=== PATIENT | male | born 1955 | race Caucasian/White ===

== ENCOUNTER → 2019-08-15 | Outpatient (CLI) | payer MEDICARE, OTHER ==
[2017-10-15 12:56] VITALS: BP 118/75
[~2019-08-15] MED LIST: ASPI-612 PO; BUPR300T3 PO; EMPA10TA PO; EZET10TA20 PO; LISI2.5T PO; METF500T16 PO; METO-239 PO; NOVALOG INSULIN PUMP; OMEP40CA45 PO; SIMV40TA18 PO
--- NOTE | 2019-08-15 16:12 | RAD ---
LONA ART STUDY LOWER EXTREM NESHA, DUPLEX LOWER EXTREMITY BILAT Indication: Reason: DECREASED PULSES B/L FEET / Spl. Instructions: / History: Comparison: None. Procedure: Arterial pressures are measured in the arms and ankles. Real-time grayscale, color flow Doppler, and Doppler spectral waveform analysis of the arterial system of the lower extremity is performed. Findings: Right ankle: 143 mm Hg. Right arm: 123 mm Hg. Right leg LONA: 1.1. Left ankle: 152 mm Hg. Left arm: 120 mm Hg. Left leg LONA: 1.2. Findings: Right lower extremities: Moderate scattered atheromatous plaque. Triphasic or biphasic waveforms within the right common femoral, deep femoral, superficial femoral, popliteal and peroneal arteries. Occluded posterior tibial artery. Monophasic waveform within the dorsalis pedis artery. Left lower extremity: Moderate scattered atheromatous plaque. Biphasic waveform within the left common femoral, deep femoral, superficial femoral, popliteal, posterior tibial, peroneal and anterior tibial arteries. Monophasic waveform within the left dorsalis pedis artery. IMPRESSION: 1. Occluded right posterior tibial artery. CT angiogram can further assess if clinically indicated. 2. Moderate scattered atheromatous plaque. 3. Monophasic waveforms within the bilateral dorsalis pedis arteries, may indicate proximal stenosis. 4. Normal bilateral ankle brachial indices. Electronically signed by: Hank Berg DO (08/15/2019 4:09 PM) [id number]
== END | disposition home or self-care (01) ==
LOC: US 12:17
PROVIDERS: ATTEND Family Medicine
DX: I70.298 Other atherosclerosis of native arteries of extremities, other extremity (principal); I77.1 Stricture of artery; I70.0 Atherosclerosis of aorta
CPT/HCPCS: 93922; 93925

== ENCOUNTER 2019-10-16 17:17 | Emergency (ER) | payer MEDICARE ==
[~2019-10-16] VITALS: Ht 182.9 cm; Wt 95.9 kg
[~2019-10-16 17:17] MED LIST changes: -ASPI-612 PO; +ASPI-886 PO
[2019-10-16 17:40] VITALS: BP 145/71
--- NOTE | 2019-10-16 18:25 | RAD ---
3 views left hand AP lateral oblique views HISTORY: Status post fall with palmar laceration There are comminuted fractures of the base of the fourth and fifth fingers. The fractured base of the fifth finger has mild valgus angulation and anterior displacement and posterior angulation. A fracture the base of the fourth finger is nondisplaced. The remaining visualized osseous structures appear intact. IMPRESSION: Acute traumatic fractures the base of the fourth and fifth fingers. Electronically signed by: Marvin Michael III, MD (10/16/2019 6:22 PM) [facility]
[2019-10-16] MEDS ORDERED: fentaNYL PF VIAL 100 MCG/2 ML VIAL IVP ONE (18:45)
--- NOTE | 2019-10-16 19:13 | RAD ---
CT Head W/O Contrast: History: Reason: fall / Spl. Instructions: / History: Comparison: none Axial images were obtained without contrast. There is moderate diffuse atrophy. There is no mass effect, extraaxial fluid collections or hydrocephalus. There is no focal loss of galo-white matter distinction to suggest acute ischemia, i.e. stroke. Impression: Atrophy slightly advanced for the patient's age. No acute findings. End impression CT maxillofacial without contrast History: Pain status post fall Axial helical images of the face were obtained without contrast. Axial and coronal reconstruction was performed. The nasal septum is mild deviated to the right. The ostiomeatal complexes are narrow but patent. There is a small amount of blood posteriorly in the right maxillary sinus. The visualized osseous structures appear intact. The orbits appear normal. Impression: Tiny amount of blood in the right maxillary sinus. No fracture seen. End impression CT C-Spine without contrast: Clinical History: Reason: fall / Spl. Instructions: / History: Technique: Axial helical images of the cervical spine were obtained without contrast, axial coronal and sagittal reconstruction was performed. Findings: There is no loss of vertebral body stature. There is no prevertebral soft tissue swelling. The vertebral bodies are well aligned. The C1-C2 relationship is normal. The visualized osseous structures appear normal. Evaluation of the central canal is limited without contrast. There is multiple posterior disc bulges resulting in flattening of the thecal sac. There does not appear to be gross flattening of the cervical cord. There is moderate narrowing of multiple neuroforamen. Impression: No acute findings. Clinical correlation suggested. PQRS Compliance Statement: One or more of the following individualized dose reduction techniques were utilized for this examination: 1. Automated exposure control 2. Adjustment of the mA and/or kV according to patient size 3. Use of iterative reconstruction technique Electronically signed by: Marvin Michael III, MD (10/16/2019 7:11 PM) [facility]
[2019-10-16 19:14] LABS: BASO # 0.1 x10^3/uL (0.0-0.2); BASO % 1 % (0-3); EOS # 0.1 x10^3/uL (0.0-0.7); EOS % 0 % (0-3); HEMOGLOBIN 14.5 g/dL (13.0-17.5); LYMPH # 1.4 x10^3/uL (1.0-4.8); LYMPH % 11 % (24-48); MEAN CORPUSCULAR HEMOGLOBIN 29 pg (25-35); MEAN CORPUSCULAR HGB CONC 35 g/dL (31-37); MEAN CORPUSCULAR VOLUME 85 fL (79-100); MONO # 0.7 x10^3/uL (0.0-1.1); MONO % 6 % (0-9); NEUT # 10.5 x10^3/uL (1.8-7.7); NEUT % 82 % (31-73); PLATELET COUNT 178 x10^3/uL (140-400); RED BLOOD COUNT 4.95 x10^6/uL (4.30-5.70); RED CELL DISTRIBUTION WIDTH 13.1 % (11.5-14.5); WHITE BLOOD COUNT 12.8 x10^3/uL (4.0-11.0)
[2019-10-16 19:23] LABS: PROTHROMBIN TIME PATIENT 13.1 SEC (11.7-14.0)
[2019-10-16 19:29] LABS: CALCIUM 9.2 mg/dL (8.5-10.1); CREATININE 1.3 mg/dL (0.7-1.3); GFR 55.9; POTASSIUM 5.1 mmol/L (3.5-5.1)
[2019-10-16 19:34] LABS: ALBUMIN 3.6 g/dL (3.4-5.0); ALBUMIN/GLOBULIN RATIO 1.1 (1.0-1.7); TOTAL BILIRUBIN 0.4 mg/dL (0.2-1.0); TOTAL PROTEIN 6.8 g/dL (6.4-8.2)
[2019-10-16] MEDS ORDERED: PIPERACILLIN/TAZOBACTAM 3.375 GM in IV NORMAL SALINE 50ML 50 ML IV ONE (20:30)
[2019-10-16] MEDS ORDERED: fentaNYL PF VIAL 100 MCG/2 ML VIAL IV PRN (20:45)
[2019-10-16] MEDS ORDERED: DIPH,PERTUSS(ACELL),TET VAC/PF 0.5 ML SYRINGE. VAX IM ONE (20:45)
[2019-10-16] MEDS ORDERED: LIDOCAINE WITH 8.4% SOD BICARB 3 ML DISP.SYRIN. INJ ONE (21:15)
--- NOTE | 2019-10-16 21:49 | PHYS DOC ---
Past Medical History Past Medical History: CAD, Diabetes-Type I, GERD, High Cholesterol, Stroke Past Surgical History: Coronary Bypass Surgery, Hip Replacement Additional Past Surgical Histo: CABG X5, SHOULDER, KNEE, PLANTAR FASCIITIS, LASER EYE Smoking Status: Never Smoker Alcohol Use: None Drug Use: None General Adult EDM: Chief Complaint: LACERATION/AVULSION HPI: HPI: Patient is a 64 year old female with history of diabetes type 1, hypertension, high cholesterol, CVA, who presents to the ED today to be evaluated after falling. Patient reports he was moving 70lbs Olympic weights which pulled him forward and he fell down. Patient has abrasions on his forehead, laceration to the left hand, laceration to the upper lip and nasal bridge. Patient denies any loss of consciousness. Denies any neck pain. Review of Systems: Review of Systems: Constitutional: Denies fever or chills. [] Eyes: Denies change in visual acuity. [] HENT: Denies nasal congestion or sore throat. [] Respiratory: Denies cough or shortness of breath. [] Cardiovascular: Denies chest pain or edema. [] GI: Denies abdominal pain, nausea, vomiting, bloody stools or diarrhea. [] : Denies dysuria. [] Musculoskeletal: Reports left hand laceration. Denies back pain or joint pain. [] Integument: Reports facial bruising Neurologic: Denies headache, focal weakness or sensory changes. [] Psychiatric: Denies depression or anxiety. [] Heart Score: Risk Factors: Risk Factors: DM, Current or recent (<one month) smoker, HTN, HLP, family history of CAD, obesity. Risk Scores: Score 0 - 3: 2.5% MACE over next 6 weeks - Discharge Home Score 4 - 6: 20.3% MACE over next 6 weeks - Admit for Clinical Observation Score 7 - 10: 72.7% MACE over next 6 weeks - Early Invasive Strategies Current Medications: Current Medications Medications (Trade) Dose Ordered Sig/Francisco Start Time Stop Time Status Last Admin Dose Admin Diphtheria/ Tetanus/Acell Pertussis (ADACEL TDap SYRINGE) 0.5 ml ONCE ONCE 10/16/19 20:45 10/16/19 20:46 DC Fentanyl Citrate (Fentanyl 2ml Vial) 50 mcg PRN Q15MIN PRN 10/16/19 20:45 10/17/19 20:44 9/7/20 20:50 50 MCG Lidocaine HCl (Buffered Lidocaine 1%) 9 ml 1X ONCE 10/16/19 21:15 10/16/19 21:16 DC Piperacillin Sod/ Tazobactam Sod 3.375 gm/Sodium Chloride 50 ml @ 100 mls/hr 1X ONCE 10/16/19 20:30 10/16/19 20:59 DC 10/16/19 20:30 100 MLS/HR Allergies: Allergies: Allergies Coded Allergies Type Severity Reaction Last Updated Verified codeine Allergy Mild nausea 10/14/17 Yes Physical Exam: PE: Constitutional: Well developed, well nourished, no acute distress, non-toxic appearance. [] HENT: Normocephalic,, bilateral external ears normal, oropharynx moist, no oral exudates, see skin, trace amount of blood noted in bilateral nasal cavities that appears to be nosebleed that has slowed down Eyes: PERRLA, EOMI, conjunctiva normal, no discharge. [] Neck: Normal range of motion, no tenderness, supple, no stridor. [] Cardiovascular:Heart rate regular rhythm, no murmur [] Lungs & Thorax: Bilateral breath sounds clear to auscultation [] Abdomen: Bowel sounds normal, soft, no tenderness, no masses, no pulsatile masses. [] Skin: Bruising noted to the right forehead, upper lip, nose with a laceration approximately 2 cm over the nasal bridge. Upper lip with a laceration approxi mately 0.5 cm not cutting through. Inner upper lip with bruising Back: No tenderness, no CVA tenderness. [] Extremities: Palmar aspect of the left hand distal end just below the MIP joints with a laceration approximately 8 cm long. Patient able to flex and extend the fingers though they appear deformed specifically fourth and fifth fingers. Tenderness on palpation of the left fourth and fifth fingers. There is no obvious tendon involvement in the laceration. Adequate radial, medial, ulnar sensation to the left hand. Cap refill less than 2 seconds in left fingers. Neurologic: Alert and oriented X 3, normal motor function, normal sensory function, no focal deficits noted. Cranial nerves II through XII intact Psychologic: Affect normal, judgement normal, mood normal. [] Current Patient Data: Labs: Laboratory Tests Test 10/16/19 18:50 White Blood Count 12.8 x10^3/uL (4.0-11.0) H Red Blood Count 4.95 x10^6/uL (4.30-5.70) Hemoglobin 14.5 g/dL (13.0-17.5) Hematocrit 42.0 % (39.0-53.0) Mean Corpuscular Volume 85 fL (79-100) Mean Corpuscular Hemoglobin 29 pg (25-35) Mean Corpuscular Hemoglobin Concent 35 g/dL (31-37) Red Cell Distribution Width 13.1 % (11.5-14.5) Platelet Count 178 x10^3/uL (140-400) Neutrophils (%) (Auto) 82 % (31-73) H Lymphocytes (%) (Auto) 11 % (24-48) L Monocytes (%) (Auto) 6 % (0-9) Eosinophils (%) (Auto) 0 % (0-3) Basophils (%) (Auto) 1 % (0-3) Neutrophils # (Auto) 10.5 x10^3/uL (1.8-7.7) H Lymphocytes # (Auto) 1.4 x10^3/uL (1.0-4.8) Monocytes # (Auto) 0.7 x10^3/uL (0.0-1.1) Eosinophils # (Auto) 0.1 x10^3/uL (0.0-0.7) Basophils # (Auto) 0.1 x10^3/uL (0.0-0.2) Prothrombin Time 13.1 SEC (11.7-14.0) Prothrombin Time INR 1.0 (0.8-1.1) Activated Partial Thromboplast Time 28 SEC (24-38) Sodium Level 142 mmol/L (136-145) Potassium Level 5.1 mmol/L (3.5-5.1) Chloride Level 105 mmol/L (98-107) Carbon Dioxide Level 30 mmol/L (21-32) Anion Gap 7 (6-14) Blood Urea Nitrogen 17 mg/dL (8-26) Creatinine 1.3 mg/dL (0.7-1.3) Estimated GFR (Cockcroft-Gault) 55.9 BUN/Creatinine Ratio 13 (6-20) Glucose Level 179 mg/dL (70-99) H Calcium Level 9.2 mg/dL (8.5-10.1) Total Bilirubin 0.4 mg/dL (0.2-1.0) Aspartate Amino Transferase (AST) 25 U/L (15-37) Alanine Aminotransferase (ALT) 31 U/L (16-63) Alkaline Phosphatase 82 U/L (46-116) Total Protein 6.8 g/dL (6.4-8.2) Albumin 3.6 g/dL (3.4-5.0) Albumin/Globulin Ratio 1.1 (1.0-1.7) Laboratory Tests 10/16/19 18:50 Laboratory Tests 10/16/19 18:50 Vital Signs: Vital Signs Date Time Temp Pulse Resp B/P (MAP) Pulse Ox O2 Delivery O2 Flow Rate FiO2 10/16/19 20:50 16 96 10/16/19 17:40 97.7 99 145/71 (95) Room Air 97.7 EKG: EKG: [] Radiology/Procedures: Radiology/Procedures: []PROCEDURE: HAND LEFT 3V 3 views left hand AP lateral oblique views HISTORY: Status post fall with palmar laceration There are comminuted fractures of the base of the fourth and fifth fingers. The fractured base of the fifth finger has mild valgus angulation and anterior displacement and posterior angulation. A fracture the base of the fourth finger is nondisplaced. The remaining visualized osseous structures appear intact. IMPRESSION: Acute traumatic fractures the base of the fourth and fifth fingers. Electronically signed by: Christy Bonilla III, MD (10/16/2019 6:22 PM) [facility] DICTATED and SIGNED BY: CHRISTY BONILLA III, MD DATE: 10/16/191821 PROCEDURE: CT HEAD AND CERVICAL SPINE WO CT Head W/O Contrast: History: Reason: fall / Spl. Instructions: / History: Comparison: none Axial images were obtained without contrast. There is moderate diffuse atrophy. There is no mass effect, extraaxial fluid collections or hydrocephalus. There is no focal loss of galo-white matter distinction to suggest acute ischemia, i.e. stroke. Impression: Atrophy slightly advanced for the patient's age. No acute findings. End impression CT maxillofacial without contrast History: Pain status post fall Axial helical images of the face were obtained without contrast. Axial and coronal reconstruction was performed. The nasal septum is mild deviated to the right. The ostiomeatal complexes are narrow but patent. There is a small amount of blood posteriorly in the right maxillary sinus. The visualized osseous structures appear intact. The orbits appear normal. Impression: Tiny amount of blood in the right maxillary sinus. No fracture seen. End impression CT C-Spine without contrast: Clinical History: Reason: fall / Spl. Instructions: / History: Technique: Axial helical images of the cervical spine were obtained without contrast, axial coronal and sagittal reconstruction was performed. Findings: There is no loss of vertebral body stature. There is no prevertebral soft tissue swelling. The vertebral bodies are well aligned. The C1-C2 relationship is normal. The visualized osseous structures appear normal. Evaluation of the central canal is limited without contrast. There is multiple posterior disc bulges resulting in flattening of the thecal sac. There does not appear to be gross flattening of the cervical cord. There is moderate narrowing of multiple neuroforamen. Impression: No acute findings. Clinical correlation suggested. PQRS Compliance Statement: One or more of the following individualized dose reduction techniques were utilized for this examination: 1. Automated exposure control 2. Adjustment of the mA and/or kV according to patient size 3. Use of iterative reconstruction technique Electronically signed by: Christy Bonilla III, MD (10/16/2019 7:11 PM) [facility] DICTATED and SIGNED BY: CHRISTY BONILLA III, MD DATE: 10/16/191910 PROCEDURE: CT MAXILLOFACIAL WO CONTRAST CT Head W/O Contrast: History: Reason: fall / Spl. Instructions: / History: Comparison: none Axial images were obtained without contrast. There is moderate diffuse atrophy. There is no mass effect, extraaxial fluid collections or hydrocephalus. There is no focal loss of galo-white matter distinction to suggest acute ischemia, i.e. stroke. Impression: Atrophy slightly advanced for the patient's age. No acute findings. End impression CT maxillofacial without contrast History: Pain status post fall Axial helical images of the face were obtained without contrast. Axial and coronal reconstruction was performed. The nasal septum is mild deviated to the right. The ostiomeatal complexes are narrow but patent. There is a small amount of blood posteriorly in the right maxillary sinus. The visualized osseous structures appear intact. The orbits appear normal. Impression: Tiny amount of blood in the right maxillary sinus. No fracture seen. End impression CT C-Spine without contrast: Clinical History: Reason: fall / Spl. Instructions: / History: Technique: Axial helical images of the cervical spine were obtained without contrast, axial coronal and sagittal reconstruction was performed. Findings: There is no loss of vertebral body stature. There is no prevertebral soft tissue swelling. The vertebral bodies are well aligned. The C1-C2 relationship is normal. The visualized osseous structures appear normal. Evaluation of the central canal is limited without contrast. There is multiple posterior disc bulges resulting in flattening of the thecal sac. There does not appear to be gross flattening of the cervical cord. There is moderate narrowing of multiple neuroforamen. Impression: No acute findings. Clinical correlation suggested. PQRS Compliance Statement: One or more of the following individualized dose reduction techniques were utilized for this examination: 1. Automated exposure control 2. Adjustment of the mA and/or kV according to patient size 3. Use of iterative reconstruction technique Electronically signed by: Christy Bonilla III, MD (10/16/2019 7:11 PM) [facility] DICTATED and SIGNED BY: CHRISTY BONILLA III, MD DATE: 10/16/191910 Laceration/Wound Repair Wound Location: Nasal bridge and upper lip Wound's Depth, Shape: Horizontal Wound Length (cm): See skin documentation Wound Explored: clean Irrigated w/ Saline (ccs): 20 Betadine Prep?: y Anesthesia: 1% of buffered lidocaine Volume Anesthetic (ccs): 3 cc total Wound Repaired With: Nasal laceration was repaired with dissolvable gut 5.0 4 interrupted sutures were done, upper lip laceration was repaired with Vicryl 4.0, 2 interrupted sutures were done. Course & Med Decision Making: Course & Med Decision Making Pertinent Labs and Imaging studies reviewed. (See chart for details) This is a 64-year-old male patient who presents to the ED today to be evaluated status post falling while moving weights. CT of the head, cervical spine and maxillofacial were negative for any acute findings. Left hand x-ray was noted for acute traumatic fractures the base of the fourth and fifth fingers, this is an open fracture. Consulted with Dr. Rock who requested patient to be transferred to hospital with a hand surgeon. Spoke with FARHAN powers, Dr. Tyson accepted patient for admission Patient was given Zosyn in the ED, laceration to the nose and lip were repaired in the ED by me. Tetanus is up-to-date. Dragon Disclaimer: Jamia Disclaimer: This electronic medical record was generated, in whole or in part, using a voice recognition dictation system. Departure Departure Impression: Primary Impression: Fall from standing Qualified Codes: W19.XXXA - Unspecified fall, initial encounter Additional Impressions: Nasal laceration Qualified Codes: S01.21XA - Laceration without foreign body of nose, initial encounter Laceration of left hand Qualified Codes: S61.412A - Laceration without foreign body of left hand, initial encounter Laceration of lip Qualified Codes: S01.511A - Laceration without foreign body of lip, initial encounter Finger fracture, left Qualified Codes: S62.645B - Nondisplaced fracture of proximal phalanx of left ring finger, initial encounter for open fracture Disposition: 05 TRANSFER OTHER Condition: STABLE Referrals: ZENIA AQUINO MD (PCP) Justicifation of Admission Dx: Justifications for Admission: Justification of Admission Dx: N/A JAGDISH BRIAN APRN Oct 16, 2019 21:49
== END 2019-10-16 22:04 | disposition short-term general hospital (02) ==
LOC: ER 17:17
DX: S62.645B Nondisplaced fracture of proximal phalanx of left ring finger, initial encounter for open fracture (principal); S01.511A Laceration without foreign body of lip, initial encounter; S01.21XA Laceration without foreign body of nose, initial encounter; I11.9 Hypertensive heart disease without heart failure; E10.9 Type 1 diabetes mellitus without complications; K21.9 Gastro-esophageal reflux disease without esophagitis; I25.2 Old myocardial infarction; Z98.890 Other specified postprocedural states; Z86.73 Personal history of transient ischemic attack (TIA), and cerebral infarction without residual deficits; Z88.5 Allergy status to narcotic agent; W18.39XA Other fall on same level, initial encounter; Y93.89 Activity, other specified; Y92.89 Other specified places as the place of occurrence of the external cause; Y99.8 Other external cause status
CPT/HCPCS: 12011; 36415; 70450; 70486; 72125; 73130; 80053; 85025; 85610; 85730; 96365; 96375; 96376; 99285; J2543; J3010